=== PATIENT | male | born 1960 | race Caucasian/White ===

== ENCOUNTER 2016-04-01 02:27 | Emergency (ER) | payer OTHER ==
[~2016-04-01] VITALS: Ht 172.7 cm; Wt 93.0 kg
[2016-04-01 02:33] VITALS: BP 132/81
[2016-04-01] MEDS ORDERED: PENICILLIN G BENZATHINE 2.4 MMU/4 ML ML IM ONE ×2 (02:47→03:00)
== END 2016-04-01 03:09 | disposition home or self-care (01) ==
LOC: ER 02:27
DX: J02.9 Acute pharyngitis, unspecified (principal)
CPT/HCPCS: 96372; 99283; A4606; J0558; Z7610

== ENCOUNTER 2018-03-21 06:02 | Emergency (ER) | payer OTHER ==
[~2018-03-21] VITALS: Ht 167.6 cm; Wt 108.9 kg
[2018-03-21 06:07] VITALS: BP 206/110
[2018-03-21] MEDS ORDERED: ALBUTEROL FS 2.5 MG/3 ML VIAL.NEB ONE (06:29)
[2018-03-21] MEDS ORDERED: IPRATROPIUM NEB FS 0.5 MG/2.5 ML AMPUL.NEB NEB ONE (06:30)
[2018-03-21] MEDS ORDERED: ALBUTEROL FS 2.5 MG/3 ML VIAL.NEB NEB ONE (06:30)
[2018-03-21] MEDS ORDERED: IPRATROPIUM NEB FS 0.5 MG/2.5 ML AMPUL.NEB ONE (06:30)
[2018-03-21] MEDS ORDERED: predniSONE 20 MG TABLET PO ONE (06:30)
[2018-03-21] MEDS ORDERED: predniSONE 20 MG TABLET ONE (06:35)
== END 2018-03-21 06:56 | disposition home or self-care (01) ==
LOC: ER 06:07
DX: J20.9 Acute bronchitis, unspecified (principal); Z60.2 Problems related to living alone; Z86.19 Personal history of other infectious and parasitic diseases
CPT/HCPCS: 94640; 99283; A4606; J7512; Z7610

== ENCOUNTER 2018-08-31 14:43 | Emergency (ER) | payer OTHER ==
[~2018-08-31] VITALS: Ht 167.6 cm; Wt 120.2 kg
--- NOTE | 2018-08-31 15:00 | NUR ---
Pt presented to the ER with a c/o R eye pain, redness, blurred vision since this morning. Pt stated that he woke up with rt eye redness and discharge coming from his eye. Pt uses glasses and stated that he put eye drops in his eye earlier and it caused them to burn. Visual acquity was done with his glasses and pt has 20/20 vision in both eyes and 20/25 in the R eye. Pt returned to ER bed #13.
[2018-08-31 15:33] VITALS: BP 155/95
--- NOTE | 2018-08-31 15:34 | NUR ---
Patient discharged to home in stable condition. Written and verbal after care instructions given. Patient verbalizes understanding of instruction and RX. Pt ambulated out with a steady gait. VSS.
== END 2018-08-31 15:33 | disposition home or self-care (01) ==
LOC: ER 14:52
DX: H10.89 Other conjunctivitis (principal); Z60.2 Problems related to living alone

== ENCOUNTER 2018-12-31 20:06 | Emergency (ER) | payer OTHER ==
[~2018-12-31] VITALS: Ht 167.6 cm; Wt 130.2 kg
--- NOTE | 2018-12-31 21:22 | NUR ---
[facility] HOME. TO ER BED 4. AAOX4. NO RESP DISTRESS NOTED. AMBULATORY. C/O L KNEE PAIN. PT REPORTS THAT AFTER WAKING UP FROM A [facility] THIS AFTERNOON, HIS KNEE WAS PAINFUL SWOLLEN AND RED. @ 7PM PT TOOK ALEVE. UPON ASSESSMENT, NO NOTED SWELLING ON L KNEE, SLIGHTLY RED AND PAIN REPORTS PAIN HAVE SUBSIDED. PT IS WORRIED BRUNILDA HE MIGHT HAVE A CLOT. AWAITING MD AT BEDSIDE. PT IS SITTING ON CHAIR WHICH IS A COMFORTABLE POSITION.
--- NOTE | 2018-12-31 21:41 | NUR ---
US AT BEDSIDE
[2018-12-31 22:31] VITALS: BP 179/98
--- NOTE | 2018-12-31 22:31 | NUR ---
Patient discharged to home in stable condition. Written and verbal after care instructions given. Patient verbalizes understanding of instruction. Pt ambulatory with a steady gait
== END 2018-12-31 22:32 | disposition home or self-care (01) ==
LOC: ER 20:07
DX: L03.116 Cellulitis of left lower limb (principal); E66.01 Morbid (severe) obesity due to excess calories; I10 Essential (primary) hypertension; Z68.42 Body mass index [BMI] 45.0-49.9, adult; Z60.2 Problems related to living alone
CPT/HCPCS: 82962-TC; 93971-TC

== ENCOUNTER 2019-01-06 21:52 | Emergency (ER) | payer OTHER ==
[~2019-01-06] VITALS: Ht 167.6 cm; Wt 127.9 kg
--- NOTE | 2019-01-06 22:27 | NUR ---
"BIBS. C/O "SEEN HERE FOR L LEG CELLULITIS. TOOK ATBX X7 DAYS. NO CHANGE. +BURNING URINATION" -SOB AOX4. VSS. AFEBRILE. AMBULATORY. +EDEMA. +REDNESS" PT AAOX4, -SOB, NAD NOTED, VSS, PENDING MD SALAS
[2019-01-06 23:47] LABS: APPEARANCE,URINE Slightly Cloudy (CLEAR); BILIRUBIN,URINE SMALL (NEGATIVE); BLOOD, URINE Trace-intact Ery/uL (NEGATIVE); COLOR,URINE Dark (YELLOW); KETONES,URINE Negative (NEGATIVE); LEUKOCYTE ESTERASE ,URINE Negative (NEGATIVE); NITRITE, URINE Negative (NEGATIVE); PH,URINE 5.5 (5.0-8.0); PROTEIN,URINE Negative (NEGATIVE); UGLUCOSE Negative (NEGATIVE)
--- NOTE | 2019-01-07 00:37 | NUR ---
REPORT GIVEN TO LUNA RODRIGUEZ FOR MATTY
--- NOTE | 2019-01-07 01:09 | NUR ---
Patient discharged to home in stable condition. Written and verbal after care instructions given. Patient verbalizes understanding of instruction. IV removed. Catheter intact and site benign. Pressure and 4x4 applied to site. No bleeding noted.
[2019-01-07 01:10] VITALS: BP 139/69
[2019-01-07 01:15] LABS: BACTERIA,URINE Few /HPF (None Seen); CALCIUM OXALATE CRYSTALS,UR Few /HPF (None Seen); SQUAMOUS EPITHELIAL CELL,UR Rare /HPF (None Seen)
== END 2019-01-07 01:11 | disposition home or self-care (01) ==
LOC: ER 21:52
DX: N39.0 Urinary tract infection, site not specified (principal); I87.8 Other specified disorders of veins; I10 Essential (primary) hypertension; Z60.2 Problems related to living alone
CPT/HCPCS: 81000-TC; 87086-TC; 93971-TC

== ENCOUNTER 2019-02-28 16:01 | Emergency (ER) | payer OTHER ==
[~2019-02-28] VITALS: Ht 167.6 cm; Wt 122.5 kg
--- NOTE | 2019-02-28 16:15 | NUR ---
Patient arrived at unit with c/o cough and congestion x 2 days, afebrile
[2019-02-28] MEDS ORDERED: IPRATROPIUM NEB FS 0.5 MG/2.5 ML AMPUL.NEB NEB ONE (16:30)
[2019-02-28] MEDS ORDERED: ALBUTEROL FS 2.5 MG/3 ML VIAL.NEB NEB ONE (16:30)
[2019-02-28] MEDS ORDERED: predniSONE 20 MG TABLET PO ONE (16:30)
[2019-02-28 16:34] LABS: BASOPHILS # (AUTO) 0.1 /CMM (0.0-0.2); BASOPHILS % (AUTO) 0.9 % (0.0-2.0); EOSINOPHILS % (AUTO) 5.1 % (0.0-6.0); HEMATOCRIT 45 % (39-51); HEMOGLOBIN 14.4 g/dL (13.5-17.5); LYMPHOCYTES # (AUTO) 2.8 /CMM (0.8-4.8); LYMPHOCYTES % (AUTO) 26.9 % (20.0-44.0); MEAN CORPUSCULAR HGB CONC 32 g/dl (31.0-36.0); MEAN CORPUSCULAR VOLUME 69 fL (80-96); MONOCYTES # (AUTO) 0.8 /CMM (0.1-1.30); MONOCYTES % (AUTO) 8.1 % (2.0-12.0); NEUTROPHILS # (AUTO) 6.2 /CMM (1.8-8.9); PLATELET COUNT (AUTO) 285 /CMM (150-450); WHITE BLOOD COUNT (AUTO) 10.4 K/uL (4.3-11.0)
[2019-02-28] MEDS ORDERED: IPRATROPIUM NEB FS 0.5 MG/2.5 ML AMPUL.NEB ONE (16:52)
[2019-02-28] MEDS ORDERED: ALBUTEROL FS 2.5 MG/3 ML VIAL.NEB ONE (16:52)
[2019-02-28] MEDS ORDERED: predniSONE 20 MG TABLET ONE (17:00)
[2019-02-28 17:04] LABS: ALBUMIN 3.7 g/dL (3.4-5.0); BILIRUBIN,DIRECT 0.1 mg/dL (0.0-0.2); BILIRUBIN,TOTAL 0.4 mg/dL (0.2-1.0); CALCIUM, SERUM 8.6 mg/dL (8.5-10.1); CREATININE 1.2 mg/dL (0.6-1.3); TOTAL PROTEIN, SERUM 7.7 g/dL (6.4-8.2)
[2019-02-28 18:08] LABS: EOSINOPHILS % (MANUAL) 4 % (0-4); LYMPHOCYTES % (MANUAL) 26 % (16-48); MONOCYTES % (MANUAL) 10 % (0-11.0); NEUTROPHILS % (MANUAL) 60 (42-76)
--- NOTE | 2019-02-28 18:32 | NUR ---
IV removed. Catheter intact and site benign. Pressure and 4x4 applied to site. No bleeding noted.Patient discharged to home in stable condition. Written prescription provided. Written and verbal after care instructions given. Patient verbalizes understanding of instruction.
[2019-02-28 18:34] VITALS: BP 145/80
== END 2019-02-28 18:35 | disposition home or self-care (01) ==
LOC: ER 16:02
DX: J45.909 Unspecified asthma, uncomplicated (principal); I10 Essential (primary) hypertension; Z60.2 Problems related to living alone
CPT/HCPCS: 36415; 71045; 80048; 80076; 83880; 85025; 87804 ×2; 93005; 94640; 99284; J7512

== ENCOUNTER 2021-03-06 23:37 | Inpatient (IN) | payer OTHER ==
[~2021-03-06] VITALS: Ht 167.6 cm; Wt 129.3 kg
[2021-03-07] MEDS ORDERED: IOHEXOL-350 100 ML VIAL IV ONE (01:15)
[2021-03-07] MEDS ORDERED: CT SWABBABLE VALVE TRANS SET 1 EA INFUS.SET MC ONE (01:15)
[2021-03-07] MEDS ORDERED: IV NS 0.9% 250 ML IV ONE (01:15)
[2021-03-07 01:23] LABS: BASOPHILS # (AUTO) 0.1 K/uL (0.0-0.2); BASOPHILS % (AUTO) 0.9 % (0.0-2.0); EOSINOPHILS % (AUTO) 3.5 % (0.0-6.0); HEMATOCRIT 45 % (39-51); HEMOGLOBIN 14.5 g/dL (13.5-17.5); LYMPHOCYTES # (AUTO) 4.7 K/uL (0.8-4.8); LYMPHOCYTES % (AUTO) 33.8 % (20.0-44.0); MEAN CORPUSCULAR HGB CONC 32 g/dl (31.0-36.0); MEAN CORPUSCULAR VOLUME 71 fL (80-96); MONOCYTES # (AUTO) 1.2 K/uL (0.1-1.30); MONOCYTES % (AUTO) 8.9 % (2.0-12.0); NEUTROPHILS # (AUTO) 7.3 K/uL (1.8-8.9); NEUTROPHILS % (AUTO) 52.9 % (43.0-81.0); PLATELET COUNT (AUTO) 310 K/uL (150-450); RED BLOOD CELL COUNT(AUTO) 6.37 MIL/uL (4.5-6.0); WHITE BLOOD COUNT (AUTO) 13.8 K/uL (4.3-11.0)
[2021-03-07 01:48] LABS: CALCIUM, SERUM 8.8 mg/dL (8.5-10.1); CARBON DIOXIDE 27 mmol/L (21-32); CHLORIDE 88 mmol/L (98-107); CREATININE 1.6 mg/dL (0.6-1.3); SODIUM SERUM 132 mmol/L (136-145); UREA NITROGEN, BLOOD 24 mg/dL (7-18)
[2021-03-07 01:59] LABS: GLUCOSE 380 mg/dL (74-106); POTASSIUM 2.6 mmol/L (3.5-5.1)
[2021-03-07] MEDS ORDERED: IV NS 0.9% 1,000 ML IV ONE (02:30)
[2021-03-07] MEDS ORDERED: INSULIN REGULAR, HUMAN 100 UNIT/ML 10 ML VIAL IV ONE (02:30)
[2021-03-07] MEDS ORDERED: POTASSIUM CL. PREMIX PERIPHER. 100 ML ONE ×2 (02:31→04:54)
[2021-03-07] MEDS: POTASSIUM CL. PREMIX PERIPHER. 50 ML IV SCH ×4 (02:40→11:52)
[2021-03-07] MEDS ORDERED: MAG HYDROX/AL HYDROX/SIMETH 30 ML UDC PO PRN (04:30)
[2021-03-07] MEDS ORDERED: ACETAMINOPHEN 325 MG TABLET PO PRN (04:30)
[2021-03-07 04:45] LABS: BILIRUBIN,URINE NEGATIVE (NEGATIVE); COLOR,URINE YELLOW (YELLOW); LEUKOCYTE ESTERASE ,URINE NEGATIVE (NEGATIVE); NITRITE, URINE NEGATIVE (NEGATIVE); PROTEIN,URINE NEGATIVE (NEGATIVE); UGLUCOSE >=1000 mg/dL (NEGATIVE); UROBILINOGEN,URINE 0.2 EU/dL (0.2)
[2021-03-07 04:59] LABS: BASOPHILS # (AUTO) 0.1 K/uL (0.0-0.2); BASOPHILS % (AUTO) 0.7 % (0.0-2.0); EOSINOPHILS % (AUTO) 2.9 % (0.0-6.0); HEMATOCRIT 41 % (39-51); HEMOGLOBIN 12.9 g/dL (13.5-17.5); LYMPHOCYTES % (AUTO) 24.3 % (20.0-44.0); MEAN CORPUSCULAR HGB CONC 32 g/dl (31.0-36.0); MEAN CORPUSCULAR VOLUME 70 fL (80-96); MONOCYTES # (AUTO) 1.2 K/uL (0.1-1.30); MONOCYTES % (AUTO) 9.3 % (2.0-12.0); NEUTROPHILS # (AUTO) 7.8 K/uL (1.8-8.9); NEUTROPHILS % (AUTO) 62.8 % (43.0-81.0); PLATELET COUNT (AUTO) 269 K/uL (150-450); RED BLOOD CELL COUNT(AUTO) 5.82 MIL/uL (4.5-6.0); WHITE BLOOD COUNT (AUTO) 12.5 K/uL (4.3-11.0)
[2021-03-07] MEDS ORDERED: Potassium Chloride 40 MEQ in IV NS 0.9% 1,000 ML IV PRN (05:00)
[2021-03-07] MEDS ORDERED: ENOXAPARIN SODIUM 40 MG/0.4 ML DISP.SYRIN SQ SCH (05:00)
[2021-03-07 05:15] LABS: EOSINOPHILS % (MANUAL) 4 % (0-4); LYMPHOCYTES % (MANUAL) 26 % (16-48); MONOCYTES % (MANUAL) 10 % (0-11.0); NEUTROPHILS % (MANUAL) 60 (42-76)
[2021-03-07 05:18] LABS: ALBUMIN 3.1 g/dL (3.4-5.0); BILIRUBIN,TOTAL 0.4 mg/dL (0.2-1.0); CREATININE 1.4 mg/dL (0.6-1.3); TOTAL PROTEIN, SERUM 6.7 g/dL (6.4-8.2)
[2021-03-07 05:52] LABS: BACTERIA,URINE Few /HPF (None Seen); RBC,URINE 21-50 /HPF (0-2); SQUAMOUS EPITHELIAL CELL,UR Few /HPF (None Seen)
[2021-03-07 05:54] VITALS: BP 117/75
[2021-03-07 06:00] LABS: THYROID STIMULATING HORMONE 1.798 uIU/mL (0.358-3.74)
[2021-03-07] MEDS: BLOOD SUGAR DIAGNOSTIC 1 EACH STRIP IN SCH ×4 (06:00→11:54)
[2021-03-07] MEDS ORDERED: METF-440 PO (07:13)
[2021-03-07] MEDS ORDERED: ROSU20TA32 PO (07:13)
[2021-03-07] MEDS ORDERED: PANTOPRAZOLE 40 MG TABLET.DR PO SCH (07:30)
[2021-03-07 08:00] VITALS: BP 132/84
[2021-03-07] MEDS: CLOPIDOGREL BISULFATE 75 MG TABLET PO SCH ×2 (09:08→09:21)
[2021-03-07] MEDS: ASPIRIN EC 325 MG TABLET.DR PO SCH ×2 (09:08→09:20)
[2021-03-07 12:00] VITALS: BP 135/82
[2021-03-07 16:00] VITALS: BP 130/81
[2021-03-07] MEDS ORDERED: DEXTROSE 50%-WATER 50 ML DISP.SYRIN IV PRN (16:30)
[2021-03-07] MEDS ORDERED: INSULIN REGULAR, HUMAN 100 UNIT/ML 3 ML VIAL SQ PRN (16:30)
[2021-03-07] MEDS ORDERED: *INSULIN REGULAR(HUMULIN R)HUM 100 UNIT/ML VIAL SQ PRN (16:30)
[2021-03-07] MEDS ORDERED: BLOOD SUGAR DIAGNOSTIC 1 EACH STRIP VI SCH (17:30)
[2021-03-07] MEDS ORDERED: SIMVASTATIN 20 MG TABLET PO SCH (22:00)
[2021-03-08] MEDS ORDERED: ATORVASTATIN 40 MG TABLET PO SCH (09:00)
== END 2021-03-07 18:59 | disposition left against medical advice (07) | DRG 47 ==
LOC: ER 03-07 00:15 → TELE 03-07 04:40
PROVIDERS: ADMIT Nurse Practitioner Acute Care; ATTEND Nurse Practitioner Acute Care
DX: G45.9 Transient cerebral ischemic attack, unspecified (principal); N17.0 Acute kidney failure with tubular necrosis; D72.829 Elevated white blood cell count, unspecified; E11.65 Type 2 diabetes mellitus with hyperglycemia; E66.01 Morbid (severe) obesity due to excess calories; E87.6 Hypokalemia; H53.8 Other visual disturbances; I10 Essential (primary) hypertension; Z20.822 Contact with and (suspected) exposure to COVID-19; Z86.73 Personal history of transient ischemic attack (TIA), and cerebral infarction without residual deficits; Z98.890 Other specified postprocedural states; Z79.84 Long term (current) use of oral hypoglycemic drugs; Z79.899 Other long term (current) drug therapy; Z68.42 Body mass index [BMI] 45.0-49.9, adult; Z82.3 Family history of stroke; Z87.891 Personal history of nicotine dependence
CPT/HCPCS: 36415; 70450-TC; 70496-TC; 70498-TC; 71045-TC; 80048-TC; 80053-TC; 81001; 82962-TC; 83735-TC; 84100-TC; 84443-TC; 84484-TC; 85025-TC; 85730-TC; 86850-TC; 87081-TC; 87086-TC; 92526; 92611-TC; 93307-TC; 97116-TC; 97530-TC; C9803; G0378; J1650; J1815; J3480; J7030; J7050; Q9967

== ENCOUNTER 2021-07-25 02:22 | Emergency (ER) | payer OTHER ==
[~2021-07-25] VITALS: Ht 167.6 cm; Wt 122.5 kg
[~2021-07-25 02:22] MED LIST: METF-440 PO; ROSU20TA32 PO
[2021-07-25 02:46] VITALS: BP 134/86
--- NOTE | 2021-07-25 03:06 | NUR ---
PT DECIDED HE DIDNT WANT TO BE SEEN ANY LONGER AND DECIDED TO LEAVE. DR. GRANT DO AWARE.
--- NOTE | 2021-07-25 11:36 | NUR ---
spoke to Ramses - [phone]
== END 2021-07-25 03:13 | disposition home or self-care (01) ==
LOC: ER 02:28
DX: R10.9 Unspecified abdominal pain (principal); I10 Essential (primary) hypertension; E11.9 Type 2 diabetes mellitus without complications; Z87.442 Personal history of urinary calculi; Z86.19 Personal history of other infectious and parasitic diseases; Z60.2 Problems related to living alone; Z79.899 Other long term (current) drug therapy

== ENCOUNTER 2023-09-10 03:48 | Emergency (ER) | payer OTHER ==
[~2023-09-10] VITALS: Ht 167.6 cm; Wt 129.3 kg
[2023-09-10 05:16] VITALS: TEMP 98
[2023-09-10] MEDS ORDERED: HYDROCODONE/APAP 5/325MG TABLET ONE (05:29)
[2023-09-10] MEDS: HYDROCODONE/APAP 5/325MG TABLET PO ONE (05:32)
[2023-09-10] MEDS ORDERED: IBUP-1955 PO (06:59)
[2023-09-10 07:19] VITALS: BP 159/98; O2SAT 99
== END 2023-09-10 07:19 | disposition home or self-care (01) ==
LOC: ER 03:53
DX: S09.8XXA Other specified injuries of head, initial encounter (principal); I10 Essential (primary) hypertension; E11.9 Type 2 diabetes mellitus without complications; Z60.2 Problems related to living alone; Y08.02XA Assault by strike by baseball bat, initial encounter; Y93.89 Activity, other specified; Y92.89 Other specified places as the place of occurrence of the external cause; Y99.8 Other external cause status
CPT/HCPCS: 70450-TC

== ENCOUNTER 2024-01-28 15:49 | Emergency (ER) | payer OTHER ==
[~2024-01-28] VITALS: Ht 165.1 cm; Wt 129.3 kg
[~2024-01-28 15:49] MED LIST changes: +IBUP-1955 PO
[2024-01-28 16:01] VITALS: BP 186/122; TEMP 98.2
[2024-01-28 16:43] VITALS: O2SAT 98
== END 2024-01-28 16:46 | disposition home or self-care (01) ==
LOC: ER 15:55
DX: S09.8XXD Other specified injuries of head, subsequent encounter (principal); I10 Essential (primary) hypertension; E11.9 Type 2 diabetes mellitus without complications; Z79.84 Long term (current) use of oral hypoglycemic drugs; Z60.2 Problems related to living alone; X58.XXXD Exposure to other specified factors, subsequent encounter

== ENCOUNTER 2024-03-29 02:21 | Emergency (ER) | payer OTHER ==
[~2024-03-29] VITALS: Ht 167.6 cm; Wt 127.0 kg
[2024-03-29] MEDS ORDERED: ASPIRIN 325 MG TABLET ONE (02:56)
[2024-03-29] MEDS: ASPIRIN 325 MG TABLET PO ONE (02:57)
[2024-03-29 03:02] LABS: BASOPHILS # (AUTO) 0.1 K/uL (0.0-0.2); BASOPHILS % (AUTO) 0.9 % (0.0-2.0); EOSINOPHILS # (AUTO) 0.4 K/uL (0.0-0.7); EOSINOPHILS % (AUTO) 2.5 % (0.0-6.0); HEMATOCRIT 46 % (39-51); HEMOGLOBIN 15.2 g/dL (13.5-17.5); LYMPHOCYTES # (AUTO) 4.2 K/uL (0.8-4.8); LYMPHOCYTES % (AUTO) 26.9 % (20.0-44.0); MEAN CORPUSCULAR HEMOGLOBIN 23 PG (26.0-33.0); MEAN CORPUSCULAR HGB CONC 33 g/dl (31.0-36.0); MEAN CORPUSCULAR VOLUME 71 fL (80-96); MONOCYTES # (AUTO) 1.4 K/uL (0.1-1.30); MONOCYTES % (AUTO) 9.2 % (2.0-12.0); NEUTROPHILS # (AUTO) 9.4 K/uL (1.8-8.9); NEUTROPHILS % (AUTO) 60.5 % (43.0-81.0); PLATELET COUNT (AUTO) 252 K/uL (150-450); RED BLOOD CELL COUNT(AUTO) 6.51 MIL/uL (4.5-6.0); WHITE BLOOD COUNT (AUTO) 15.5 K/uL (4.3-11.0)
[2024-03-29 03:29] LABS: CALCIUM, SERUM 9.4 mg/dL (8.5-10.1); CARBON DIOXIDE 28 mmol/L (21-32); CHLORIDE 93 mmol/L (98-107); CREATININE 1.2 mg/dL (0.6-1.3); GLUCOSE 195 mg/dL (74-106); SODIUM SERUM 127 mmol/L (136-145); UREA NITROGEN, BLOOD 28 mg/dL (7-18)
[2024-03-29 03:30] LABS: POTASSIUM 6.6 mmol/L (3.5-5.1)
[2024-03-29] MEDS ORDERED: METOPROLOL TARTRATE INJ 5 MG/5 ML AMPUL ONE (03:41)
[2024-03-29] MEDS ORDERED: MAG HYDROX/AL HYDROX/SIMETH 30 ML UDC ONE (03:41)
[2024-03-29] MEDS ORDERED: PANTOPRAZOLE 40 MG VIAL ONE (03:41)
[2024-03-29] MEDS ORDERED: METOPROLOL TARTRATE 50 MG TABLET ONE (03:41)
[2024-03-29] MEDS ORDERED: FAMOTIDINE/PF INJ 20 MG/2 ML VIAL IV ONE (03:42)
[2024-03-29] MEDS: METOPROLOL TARTRATE INJ 5 MG/5 ML AMPUL IV ONE (03:45)
[2024-03-29] MEDS: METOPROLOL TARTRATE 25 MG TABLET PO ONE (03:46)
[2024-03-29] MEDS: PANTOPRAZOLE 40 MG VIAL IV ONE (03:46)
[2024-03-29] MEDS: MAG HYDROX/AL HYDROX/SIMETH 30 ML UDC PO ONE (03:46)
[2024-03-29] MEDS: FAMOTIDINE/PF INJ 20 MG/2 ML VIAL IV ONE (03:46)
[2024-03-29] MEDS ORDERED: CLONIDINE HCL 0.1 MG TABLET ONE (04:34)
[2024-03-29] MEDS: CLONIDINE HCL 0.1 MG TABLET PO ONE (04:35)
[2024-03-29 04:37] LABS: CALCIUM, SERUM 9.5 mg/dL (8.5-10.1); CREATININE 1.2 mg/dL (0.6-1.3); POTASSIUM 3.6 mmol/L (3.5-5.1)
[2024-03-29 04:43] LABS: ALBUMIN 3.7 g/dL (3.4-5.0); BILIRUBIN,TOTAL 0.5 mg/dL (0.2-1.0)
[2024-03-29] MEDS ORDERED: PANT40TA49 PO (05:28)
[2024-03-29] MEDS ORDERED: FAMO20TA80 PO (05:28)
[2024-03-29 05:44] VITALS: BP 144/88; TEMP 98; O2SAT 97
== END 2024-03-29 06:08 | disposition home or self-care (01) ==
LOC: ER 02:23
DX: K29.70 Gastritis, unspecified, without bleeding (principal); I10 Essential (primary) hypertension; R07.9 Chest pain, unspecified; D72.829 Elevated white blood cell count, unspecified; E11.65 Type 2 diabetes mellitus with hyperglycemia; E78.5 Hyperlipidemia, unspecified; E87.5 Hyperkalemia; Z79.84 Long term (current) use of oral hypoglycemic drugs; Z60.2 Problems related to living alone
CPT/HCPCS: 99285; 96374; 96375; 71045; 93005 ×2; 85025; 36415; 80053; 84484 ×3; 80048; J3490 ×2; J2470

== ENCOUNTER 2024-12-09 15:42 | Inpatient (IN) | payer OTHER ==
[~2024-12-09] VITALS: Ht 167.6 cm; Wt 131.5 kg
[~2024-12-09 15:42] MED LIST changes: +FAMO20TA80 PO; +PANT40TA49 PO
[2024-12-09] MEDS ORDERED: hydrALAZINE HCL IV 20 MG VIAL ONE (16:12)
[2024-12-09 16:16] LABS: PLATELET COUNT (AUTO) 331 K/uL (150-450); RED BLOOD CELL COUNT(AUTO) 6.36 MIL/uL (4.5-6.0); RED CELL DISTRIBUTION WIDTH 14.2 % (11.5-15.0); WHITE BLOOD COUNT (AUTO) 9.7 K/uL (4.3-11.0)
[2024-12-09] MEDS: IV NS 0.9% 1,000 ML BAG IV ONE (16:20)
[2024-12-09] MEDS: hydrALAZINE HCL IV 20 MG VIAL IV ONE (16:21)
[2024-12-09 16:23] LABS: CALCIUM, SERUM 8.7 mg/dL (8.5-10.1); CREATININE 0.9 mg/dL (0.6-1.3); SODIUM SERUM 138.0 mmol/L (136-145); UREA NITROGEN, BLOOD 10.0 mg/dL (7-18)
[2024-12-09 16:26] LABS: INR 0.96 (0.91-1.10)
[2024-12-09 16:30] LABS: ASPARTATE AMINOTRANSFERASE 15.0 U/L (15-37); TOTAL PROTEIN, SERUM 7.6 g/dL (6.4-8.2)
[2024-12-09] MEDS ORDERED: IV NS 0.9% 250 ML IV ONE (16:37)
[2024-12-09] MEDS ORDERED: IOHEXOL-350 100 ML VIAL IV ONE (16:37)
[2024-12-09] MEDS ORDERED: BRIM5DRO5 EACHEYE (17:57)
[2024-12-09] MEDS ORDERED: DORZ10DR11 EACHEYE (17:57)
[2024-12-09] MEDS ORDERED: LATA2.5D15 EACHEYE (17:57)
[2024-12-09] MEDS: CLOPIDOGREL BISULFATE 75 MG TABLET PO ONE (20:00)
[2024-12-09] MEDS ORDERED: ACETAMINOPHEN 325 MG TABLET PO PRN (20:00)
[2024-12-09] MEDS ORDERED: CLOPIDOGREL BISULFATE 75 MG TABLET ONE (20:57)
[2024-12-09] MEDS ORDERED: ASPIRIN 325 MG TABLET ONE (20:57)
[2024-12-09] MEDS ORDERED: DOCUSATE SODIUM 100 MG CAPSULE PO ONE (20:57)
[2024-12-09] MEDS: DOCUSATE SODIUM 100 MG CAPSULE PO SCH (20:59)
[2024-12-09] MEDS: ASPIRIN 325 MG TABLET PO ONE (20:59)
[2024-12-09] MEDS ORDERED: ATORVASTATIN 40 MG TABLET ONE (21:58)
[2024-12-09] MEDS: ATORVASTATIN 40 MG TABLET PO SCH (21:59)
[2024-12-09] MEDS: LATANOPROST EYE DROP 0.005% 2.5 ML BOTTLE EACHEYE SCH (22:00)
[2024-12-09] MEDS: BLOOD SUGAR DIAGNOSTIC 1 EACH STRIP IN SCH (22:06)
[2024-12-10 06:55] LABS: PLATELET COUNT (AUTO) 291 K/uL (150-450); RED BLOOD CELL COUNT(AUTO) 6.23 MIL/uL (4.5-6.0); RED CELL DISTRIBUTION WIDTH 14.2 % (11.5-15.0); WHITE BLOOD COUNT (AUTO) 9.4 K/uL (4.3-11.0)
[2024-12-10 07:02] LABS: CALCIUM, SERUM 8.7 mg/dL (8.5-10.1); CREATININE 1.1 mg/dL (0.6-1.3); SODIUM SERUM 138.0 mmol/L (136-145); UREA NITROGEN, BLOOD 11.0 mg/dL (7-18)
[2024-12-10 07:19] LABS: LDL 147.0 mg/dL (0-99)
[2024-12-10 08:30] VITALS: BP 160/101; TEMP 98.1; O2SAT 97
[2024-12-10] MEDS: CLOPIDOGREL BISULFATE 75 MG TABLET PO SCH (09:14)
[2024-12-10] MEDS: ASPIRIN 81 MG TAB.CHEW PO SCH (09:15)
[2024-12-10] MEDS: PANTOPRAZOLE 40 MG TABLET.DR PO SCH (09:16)
[2024-12-10] MEDS ORDERED: DEXTROSE 50%-WATER 50 ML DISP.SYRIN IV PRN (10:00)
[2024-12-10] MEDS ORDERED: *INSULIN REGULAR(HUMULIN R)HUM 100 UNIT/ML VIAL SQ PRN (10:00)
[2024-12-10] MEDS: POTASSIUM CHLORIDE 20 MEQ TAB.PRT.SR PO SCH (10:14)
[2024-12-10 11:25] VITALS: BP 150/86; TEMP 98.2; O2SAT 98
[2024-12-10] MEDS: BRIMONIDINE TARTRATE OPHT SOLN 5 ML BOTTLE EACHEYE SCH (11:40)
[2024-12-10] MEDS: TIMOLOL MAL/DORZOLAM HCL OPHTH 10 ML BOTTLE EACHEYE SCH (11:40)
[2024-12-10] MEDS: BLOOD SUGAR DIAGNOSTIC 1 EACH STRIP VI SCH (11:45)
[2024-12-10] MEDS: INSULIN REGULAR, HUMAN 100 UNIT/ML 3 ML VIAL SQ PRN (11:46)
[2024-12-10 16:00] VITALS: BP 169/103; TEMP 98.2; O2SAT 96
== END 2024-12-10 16:15 | disposition left against medical advice (07) | DRG 45 ==
LOC: ER 15:49 → TELE IN 22:58 → TELE 12-10 07:45
PROVIDERS: ATTEND Nurse Practitioner Family
DX: I63.9 Cerebral infarction, unspecified (principal); G45.9 Transient cerebral ischemic attack, unspecified; E11.9 Type 2 diabetes mellitus without complications; E66.01 Morbid (severe) obesity due to excess calories; H53.2 Diplopia; Z68.42 Body mass index [BMI] 45.0-49.9, adult; R29.701 NIHSS score 1; Z79.4 Long term (current) use of insulin; I10 Essential (primary) hypertension; J03.90 Acute tonsillitis, unspecified; Z87.891 Personal history of nicotine dependence; Z79.84 Long term (current) use of oral hypoglycemic drugs; Z79.899 Other long term (current) drug therapy; E78.5 Hyperlipidemia, unspecified; H40.9 Unspecified glaucoma; Z86.73 Personal history of transient ischemic attack (TIA), and cerebral infarction without residual deficits
CPT/HCPCS: 36415; 70496-TC; 70498-TC; 71045-TC; 80048-TC; 80053-TC; 80061-TC; 82962-TC; 84443-TC; 85025-TC; 85610-TC; 85730-TC; G0378; J0360; J1815; J7030; J7050; Q9967

== ENCOUNTER 2024-12-12 10:46 | Emergency (ER) | payer OTHER ==
[~2024-12-12] VITALS: Ht 167.6 cm; Wt 131.1 kg
[~2024-12-12 10:46] MED LIST changes: +BRIM5DRO5 EACHEYE; +DORZ10DR11 EACHEYE; -FAMO20TA80 PO; -IBUP-1955 PO; +LATA2.5D15 EACHEYE; -PANT40TA49 PO; -ROSU20TA32 PO
[2024-12-12] MEDS ORDERED: MECLIZINE HCL 25 MG TABLET ONE (11:16)
[2024-12-12] MEDS: IV NS 0.9% 1,000 ML BAG IV ONE (11:38)
[2024-12-12] MEDS: MECLIZINE HCL 25 MG TABLET PO ONE (11:38)
[2024-12-12 12:06] LABS: PLATELET COUNT (AUTO) 291 K/uL (150-450); RED BLOOD CELL COUNT(AUTO) 6.27 MIL/uL (4.5-6.0); RED CELL DISTRIBUTION WIDTH 14.5 % (11.5-15.0); WHITE BLOOD COUNT (AUTO) 8.6 K/uL (4.3-11.0)
[2024-12-12 12:09] LABS: CALCIUM, SERUM 8.5 mg/dL (8.5-10.1); CREATININE 1.2 mg/dL (0.6-1.3); SODIUM SERUM 137 mmol/L (136-145); UREA NITROGEN, BLOOD 16 mg/dL (7-18)
[2024-12-12 12:23] LABS: ASPARTATE AMINOTRANSFERASE 14 U/L (15-37); NT-PRO BNP 38 pg/mL (0-125); TOTAL PROTEIN, SERUM 6.8 g/dL (6.4-8.2)
[2024-12-12] MEDS ORDERED: MECL-159 PO (12:32)
[2024-12-12 13:27] VITALS: BP 171/98; TEMP 98.3; O2SAT 97
== END 2024-12-12 13:51 | disposition home or self-care (01) ==
LOC: ER 10:49
DX: R42 Dizziness and giddiness (principal); E11.9 Type 2 diabetes mellitus without complications; E78.5 Hyperlipidemia, unspecified; I10 Essential (primary) hypertension; R07.9 Chest pain, unspecified; Z79.84 Long term (current) use of oral hypoglycemic drugs; Z60.2 Problems related to living alone
CPT/HCPCS: 99285; 96360; 71045; 93005; 85025; 80048; 80076; 36415; 84484; 83880; J8597; J7030